=== PATIENT | female | born 1965 | race Caucasian/White ===

== ENCOUNTER 2019-02-02 09:56 | Observation (INO) | payer SELFPAY ==
[2019-02-02] MEDS ORDERED: 0.9 % SODIUM CHLORIDE 1,000 ML BAG IV ONE ×2 (10:02→11:10)
[2019-02-02] MEDS ORDERED: DIPHENHYDRAMINE HCL 50 MG/ML VIAL IVP ONE (10:03)
[2019-02-02] MEDS ORDERED: PROMETHAZINE HCL 25 MG in 0.9 % SODIUM CHLORIDE 100ML 100 ML IVPB ONE (10:03)
--- NOTE | 2019-02-02 10:06 | Emergency Department Record ---
History of Present Illness - General Chief complaint: Nausea, Vomiting, Diarrhea Stated complaint: VOMITING/DIARRHEA Time Seen by Provider: 02/02/19 10:02 Source: Patient, Family Mode of Arrival: Ambulatory Limitations: No limitations - History of Present Illness Initial comments: 53 yo female presents with nausea, vomiting, and abdominal pain that started at 4:30am. She was asymptomatic yesterday. No blood in the vomit or diarrhea. No fevers. No recent antibiotics. [place] She denies any history of abdominal surgery. She is unaware of any exposures to others with similar illness. MD complaint: Abdominal pain, Diarrhea, Nausea, Vomiting -: Hour(s) (6) Description of Vomiting: Watery Description of Diarrhea: Water Location: Diffuse, Epigastric Radiation: Epigastric Severity: Severe Quality: Constant Improves with: None Worsens with: Vomiting, Other (Diarrhea) Associated Symptoms: Other (Abdominal pain) - Related Data Home Medications Medication Instructions Recorded Confirmed Last Taken No Home Med [NO HOME MEDS] 02/02/19 02/02/19 Unknown Allergies Allergy/AdvReac Type Severity Reaction Status Date / Time iodine Allergy Severe VOMITING Verified 02/02/19 09:59 morphine Allergy Severe VOMITING Verified 02/02/19 09:59 venlafaxine HCl Allergy Severe BEHAVIORAL Verified 02/02/19 09:59 [From Effexor] CHANGES methotrexate AdvReac Mild VOMITING Verified 02/02/19 09:59 pregabalin [From Lyrica] AdvReac Mild VOMITING Verified 02/02/19 09:59 Review of Systems Constitutional: Denies: Chills, Fever, Malaise, Night sweats, Weakness Eyes: Denies: Eye discharge ENT: Denies: Congestion, Throat pain Respiratory: Denies: Cough, Dyspnea, Hemoptysis, Stridor, Wheezes Cardiovascular: Denies: Chest pain, Palpitations, Syncope Endocrine: Denies: Fatigue, Polydipsia, Polyuria Gastrointestinal: Reports: Abdominal pain, Diarrhea, Nausea, Vomiting Genitourinary: Denies: Dysuria, Urgency Musculoskeletal: Denies: Arthralgia, Back pain, Neck pain Skin: Denies: Bruising, Change in color, Rash Neurological: Denies: Headache Psychiatric: Denies: Anxiety Hematological/Lymphatic: Denies: Easy bleeding, Easy bruising Physical Exam - General General Appearance: Alert, Oriented x3, Cooperative, No acute distress Limitations: No limitations - Head Head exam: Atraumatic, Normal inspection - Eye Eye exam: Normal appearance, PERRL. negative: Conjunctival injection, Scleral icterus - ENT ENT exam: Normal exam, Mucous membranes moist, Normal orophraynx Ear exam: Normal external inspection Nasal Exam: Normal inspection Mouth exam: Normal external inspection Teeth exam: Normal inspection Throat exam: Normal inspection - Neck Neck exam: Normal inspection - Respiratory Respiratory exam: Normal lung sounds bilaterally. negative: Respiratory distress - Cardiovascular Cardiovascular Exam: Regular rate, Normal rhythm, Normal heart sounds - GI/Abdominal GI/Abdominal exam: Soft, Tenderness (tender in the periumbilical area but very soft, not distended). negative: Distended, Guarding, Rebound, Rigid - Rectal Rectal exam: Deferred - exam: Deferred - Extremities Extremities exam: Normal inspection. negative: Tenderness - Back Back exam: Denies: CVA tenderness (R), CVA tenderness (L), Paraspinal tenderness , Rash noted, Tenderness - Neurological Neurological exam: Alert, Oriented X3 - Psychiatric Psychiatric exam: Anxious. negative: Agitated - Skin Skin exam: Dry, Intact, Normal color, Warm Course - Reevaluation(s) Reevaluation #1: Vitals reviewed. 02/02/19 10:17 02/02/19 11:11 The labs were reviewed The CBC demonstrated WBC of 18 The BMP and Lipase were normal She still has nausea and pain 02/02/19 11:24 No changes on the CMP 02/02/19 12:[address] scan result is pending 02/02/19 12:20 The results were reviewed with the patient and family. No acute CT scan findings. The diarrhea has stopped. The vomiting has continued. I recommend admission OBV for supportive care until improved. 02/02/19 12:24 The case was discussed with Magnolia Yanes NP of the admission service Medical Decision Making - Lab Data Result diagrams: 02/02/19 10:13 02/02/19 10:13 Disposition Disposition: Admit Clinical Impression: Vomiting and diarrhea Disposition: Still a Patient at [facility] Decision to Admit: Admit from ER Decision to Admit Date: 02/02/19 Decision to Admit Time: 12:22 Condition: (2) Stable Forms: Patient Portal Access Time of Disposition: 12:22 Quality - Quality Measures Quality Measures: N/A - Blood Pressure Screening Does Patient Have Any of the Following: No Blood Pressure Classification: Hypertensive Reading Systolic Measurement: 146 Diastolic Measurement: 78 Screening for High Blood Pressure: < Pre-Hypertensive BP, F/U Documented > [ G8950] Pre-Hypertensive Follow-up Interventions: Referral to alternative/primary care provider.
[2019-02-02] MEDS ORDERED: ACETAMINOPHEN 1,000 MG/100 ML BTL IVPB ONE (10:10)
[2019-02-02 10:49] LABS: HEMOGLOBIN 15.8 gm/dl (11.6-16.0); MEAN CORPUSCULAR HEMOGLOBIN 31.6 pg (27-33); MEAN CORPUSCULAR HGB CONC 35.1 g/dl (32-36); MEAN PLATELET VOLUME 10.9 fl (7.4-10.4); PLATELET COUNT 349 K/uL (130-400); RED CELL DISTRIBUTION WIDTH 12.8 % (11.5-14.5); WHITE BLOOD COUNT W/O DIFF 18.9 K/uL (4.2-12.2)
[2019-02-02 11:02] LABS: BLOOD UREA NITROGEN 10 mg/dL (6-20); CREATININE 0.7 mg/dL (0.5-0.9); EST GLOMERULAR FILTRATION RATE > 60 mL/min
[2019-02-02 11:03] LABS: LIPASE 18 U/L (13-60); TOTAL PROTEIN 7.7 g/dL (6.6-8.7)
[2019-02-02 11:05] LABS: GLUCOSE,RANDOM 165 mg/dL (74-109)
[2019-02-02 11:07] LABS: ALT/SGPT 17 U/L (<33); AST/SGOT 21 U/L (10.0-35.0)
[2019-02-02 11:08] LABS: ALKALINE PHOSPHATASE 101 U/L (35-104)
[2019-02-02] MEDS ORDERED: ONDANSETRON HCL IV 4 MG/2 ML VIAL IVP ONE (11:10)
[2019-02-02] MEDS ORDERED: KETOROLAC 30 MG/ML VIAL IVP ONE (11:10)
[2019-02-02] MEDS ORDERED: PROMETHAZINE HCL 12.5 MG in 0.9 % SODIUM CHLORIDE 100ML 100 ML IVPB ONE (12:03)
[2019-02-02 12:47] LABS: ALB/GLOB RATIO 1.5 (1.1-1.8); ALBUMIN 4.6 g/dL (4.0-5.0)
[2019-02-02 12:53] LABS: URINE APPEARANCE CLEAR; URINE BILIRUBIN NEGATIVE (NEGATIVE); URINE BLOOD NEGATIVE (NEGATIVE); URINE COLOR YELLOW; URINE GLUCOSE (UA) NEGATIVE (NEGATIVE); URINE KETONE TRACE (NEGATIVE); URINE LEUKOCYTE ESTERASE NEGATIVE (NEGATIVE); URINE NITRITE NEGATIVE (NEGATIVE); URINE PROTEIN NEGATIVE (NEGATIVE); URINE UROBILINOGEN 0.2 E.U./dL (0.20 - 1.00)
[2019-02-02] MEDS ORDERED: ONDANSETRON HCL IV 4 MG/2 ML VIAL IVP PRN (14:34)
[2019-02-02] MEDS ORDERED: KETOROLAC 30 MG/ML VIAL IVP PRN (14:34)
--- NOTE | 2019-02-02 15:56 | History & Physical ---
History of Present Illness - Date of Service Date of Service for History & Physical: 02/02/19 - History of Present Illness Admitting Diagnosis: Intractable Nausea and vomiting History of Present Illness: Zeina Morley is a 53 y/o female presenting to ED for 6 hour history of nausea, vomiting, diarrhea, abdominal pain. Denies any blood in stool or emesis. No hx of abdominal surgeries. Does not she lives on a farm but denies any diarrhea diseases in the animals. No known sick contacts. reports she has medical hx of chronic bronchitis "lung problems", low back pain, bulging discs, depression, current every day smoker. Patient is unable to give a good history due to fatigue and distress. While in ED WBC 18.9, neutrophils 90. CMP unremarkable. Lipase 18. U/A + ketones. CT abdomen/pelvis negative for acute process. She was given Ofirmiv, Benadryl, Toradol, Zofran in ED for generalized abdominal pain, persistent nausea and vomiting. Diarrhea has since improved, continued with nausea, vomiting and dry heaving. Admitted to floor for supportive treatment and IVF. 02/02/19- Resting in bed, visible distress complaining of abdominal pain. Patient and were reassured her CT abdomen/pelvis was normal. No vomiting or dry heaving noted at this time. Abdomen soft, tender to upper quadrants bilat. Afebrile. Plan for supportive treatment. PCP: none Travel Screening - Travel/Exposure Within Last 30 Days Have you traveled within the last 30 days?: No - Travel/Exposure Within Last Year Have you traveled outside the [place] in the last year?: No - Additonal Travel Details Have you been exposed to anyone with a communicable illness?: No - Travel Symptoms Symptom Screening: None Review of Systems Constitutional: Denies: Chills, Fever, Malaise, Night sweats, Weakness Eyes: Denies: Eye discharge ENT: Denies: Congestion, Throat pain Respiratory: Denies: Cough, Dyspnea, Hemoptysis, Stridor, Wheezes Cardiovascular: Denies: Chest pain, Palpitations, Syncope Endocrine: Denies: Fatigue, Polydipsia, Polyuria Gastrointestinal: Reports: Abdominal pain, Diarrhea, Nausea, Vomiting Genitourinary: Denies: Dysuria, Urgency Musculoskeletal: Denies: Arthralgia, Back pain, Neck pain Skin: Denies: Bruising, Change in color, Rash Neurological: Denies: Headache Psychiatric: Denies: Anxiety Hematological/Lymphatic: Denies: Easy bleeding, Easy bruising Past Medical History - SOCIAL HISTORY Smoking Status: Current every day smoker Alcohol Use: Occasional Drug Use: None - RESPIRATORY Hx Respiratory Disorders: Yes Hx COPD: Yes - CARDIOVASCULAR Hx Cardio Disorders: No - NEURO Hx Neuro Disorders: Yes Hx Headaches: Yes - GI Hx GI Disorders: No - Hx Genitourinary Disorders: No - ENDOCRINE Hx Endocrine Disorders: No - MUSCULOSKELETAL Hx Musculoskeletal Disorders: Yes Hx Arthritis: Yes Hx Back Injury: Yes Hx Fibromyalgia: Yes - PSYCH Hx Psych Problems: Yes Hx Anxiety: Yes Hx Depression: Yes - HEMATOLOGY/ONCOLOGY Hx Hematology/Oncology Disorders: No Family Medical History Any Significant Family History?: Yes Hx Heart Disease: Mother Hx Stroke: Mother H&P Meds/Allergies - Allergies Allergies: Allergies Allergy/AdvReac Type Severity Reaction Status Date / Time iodine Allergy Severe VOMITING Verified 02/02/19 09:59 morphine Allergy Severe VOMITING Verified 02/02/19 09:59 venlafaxine HCl Allergy Severe BEHAVIORAL Verified 02/02/19 09:59 [From Effexor] CHANGES methotrexate AdvReac Mild VOMITING Verified 02/02/19 09:59 pregabalin [From Lyrica] AdvReac Mild VOMITING Verified 02/02/19 09:59 - Home Medications Home Medications Medication Instructions Recorded Confirmed Last Taken No Home Med [NO HOME MEDS] 02/02/19 02/02/19 Unknown - Active Medications Active Medications: Current Medications Sodium Chloride () 1,000 mls @ 125 mls/hr IV .Q8H PRN PRN Reason: LARGE VOLUME IV Acetaminophen (Ofirmev) 1,000 mg in 100 mls @ 400 mls/hr IVPB Q6H RODRICK Promethazine HCl 12.5 mg/ (Sodium Chloride) 100.5 mls @ 200 mls/hr IVPB Q6H PRN PRN Reason: NAUSEA Ketorolac Tromethamine (Toradol) 15 mg IVP Q8H PRN PRN Reason: PAIN - MILD (1-4) Ondansetron HCl (Zofran) 4 mg IVP Q4H PRN PRN Reason: NAUSEA Physical Exam - Vital Signs Vital Signs: Vital Signs - Last 24 Hrs Temp Pulse Pulse Resp BP BP Pulse Ox 02/02/19 14:34 97.6 F 58 L 16 176/78 100 02/02/19 14:33 54 L 20 136/71 99 02/02/19 10:01 98.2 F 48 L 20 146/78 99 - General General Appearance: Alert, Oriented x3, Cooperative Limitations: No limitations - Head Head exam: Atraumatic, Normal inspection - Eye Eye exam: Normal appearance, PERRL. negative: Conjunctival injection, Scleral icterus - ENT ENT exam: Normal exam, Mucous membranes moist, Normal orophraynx Ear exam: Normal external inspection Nasal Exam: Normal inspection Mouth exam: Normal external inspection Teeth exam: Normal inspection Throat exam: Normal inspection - Neck Neck exam: Normal inspection - Respiratory Respiratory exam: Normal lung sounds bilaterally. negative: Respiratory distress - Cardiovascular Cardiovascular Exam: Regular rate, Normal rhythm, Normal heart sounds Peripheral Pulses: 2+: Radial (R), Radial (L) - GI/Abdominal GI/Abdominal exam: Soft, Normal bowel sounds, Tenderness (tender in the periumbilical area but very soft, not distended). negative: Distended, Guarding , Rebound, Rigid - Rectal Rectal exam: Deferred - exam: Deferred - Extremities Extremities exam: Normal inspection. negative: Tenderness - Back Back exam: Denies: CVA tenderness (R), CVA tenderness (L), Paraspinal tenderness , Rash noted, Tenderness - Neurological Neurological exam: Alert, Oriented X3 - Psychiatric Psychiatric exam: Anxious. negative: Agitated - Skin Skin exam: Dry, Intact, Normal color, Warm Results - Labs Result Diagrams: 02/02/19 10:13 02/02/19 10:13 Labs Last 24 Hours: Laboratory Results - last 24 hr 02/02/19 02/02/19 02/02/19 10:13 10:13 12:53 WBC 18.9 H RBC 5.00 Hgb 15.8 Hct 45.0 MCV 90.0 MCH 31.6 MCHC 35.1 RDW 12.8 Plt Count 349 MPV 10.9 H Neutrophils % 90.0 H Eosinophils % Not Reportable Basophils % Not Reportable Lymphocytes 4.0 L Monocytes 6.0 Sodium 141 Potassium 4.2 Chloride 107 Carbon Dioxide 20.0 L Anion Gap 14.0 BUN 10 Creatinine 0.7 Estimated GFR > 60 Random Glucose 165 H Calcium 9.7 Total Bilirubin 0.50 AST 21 ALT 17 Alkaline Phosphatase 101 Total Protein 7.7 Albumin 4.6 Globulin 3.1 Albumin/Globulin Ratio 1.5 Lipase 18 Urine Color Yellow Urine Appearance Clear Urine pH 7.0 Ur Specific [place] 1.015 Urine Protein Negative Urine Glucose (UA) Negative Urine Ketones Trace H Urine Blood Negative Urine Nitrite Negative Urine Bilirubin Negative Urine Urobilinogen 0.2 Ur Leukocyte Esterase Negative - Imaging and Cardiology CT scan - abdomen Status: Report reviewed (negative for acute process) VTE H&P Assessment - Risk for VTE Risk for VTE: Yes Risk Level: Low Risk Assessment Date: 02/02/19 Risk Assessment Time: 16:18 VTE Orders Placed or Will Be Placed: Yes Plan - Detailed Diagnosis and Plan (1) Vomiting and diarrhea Current Visit: Yes Status: Acute Base Code: R11.10 - VOMITING, UNSPECIFIED; R19.7 - DIARRHEA, UNSPECIFIED Comment: 02/02/19 - Acute onset 6 hours prior to arrival - Symptoms unresolved after Benadryl, Phenergan, Toradol, Zofran, Ofirmiv in ED - CT abdomen/pelvis without acute process - Distress is out of proportation to CT and exam findings - NS @ 125ml/hr - Ofirmev 1,000mg Q6hr, Toradol 15mg IVP Q 8hr PRN, Zofran 4mg IVP Q4hr PRN - Clear liquids when symptoms improve (2) DVT prophylaxis Current Visit: Yes Status: Acute Base Code: [id number] - Comment: 02/02/19 - Nursing to encourage frequent ambulation (3) Full code status Current Visit: Yes Status: Acute Base Code: Z78.9 - OTHER SPECIFIED HEALTH STATUS Comment: 02/02/19
[2019-02-02] MEDS: PROMETHAZINE HCL 12.5 MG in 0.9 % SODIUM CHLORIDE 100ML 100 ML IVPB PRN ×2 (17:03→23:48)
[2019-02-02] MEDS: ACETAMINOPHEN 1,000 MG/100 ML BTL IVPB SCH (18:37)
[2019-02-02] MEDS: 0.9 % SODIUM CHLORIDE 1000ML 1,000 ML IV PRN (18:56)
[2019-02-02] MEDS: CALCIUM CARBONATE 500 MG TAB.CHEW PO SCH ×2 (19:19→23:52)
[2019-02-03] MEDS: ACETAMINOPHEN 1,000 MG/100 ML BTL IVPB SCH ×2 (00:19→06:14)
[2019-02-03] MEDS: 0.9 % SODIUM CHLORIDE 1000ML 1,000 ML IV PRN (00:49)
[2019-02-03 06:41] LABS: BASO % 0.1 % (0-6); GRAN % 78.4 % (47-80); HEMOGLOBIN 13.2 gm/dl (11.6-16.0); LYMPH % 14.2 % (16-45); MEAN CORPUSCULAR HEMOGLOBIN 31.1 pg (27-33); MEAN CORPUSCULAR HGB CONC 33.8 g/dl (32-36); MEAN PLATELET VOLUME 10.8 fl (7.4-10.4); MONO % 7.3 % (0-9); PLATELET COUNT 280 K/uL (130-400); RED BLOOD COUNT 4.24 M/uL (3.80-5.40); RED CELL DISTRIBUTION WIDTH 12.7 % (11.5-14.5); WHITE BLOOD COUNT W/O DIFF 14.2 K/uL (4.2-12.2)
[2019-02-03 06:53] LABS: BLOOD UREA NITROGEN 7 mg/dL (6-20); CREATININE 0.6 mg/dL (0.5-0.9); EST GLOMERULAR FILTRATION RATE > 60 mL/min; GLUCOSE,RANDOM 124 mg/dL (74-109)
--- NOTE | 2019-02-03 14:54 | Discharge Summary ---
Providers Discharge Summary Date: 02/03/19 Date of admission: 02/02/19 14:31 Expected Date of Discharge: 02/03/19 Attending physician: ORION BRANTLEY Physical Exam - Vital Signs Vital Signs: Vital Signs - Last 24 Hrs Temp Pulse Resp BP Pulse Ox 02/03/19 08:00 98.2 F 56 L 17 130/64 97 02/03/19 03:45 97.9 F 45 L 18 138/70 96 - General General Appearance: Alert, Oriented x3, Cooperative, No acute distress Limitations: No limitations - Head Head exam: Atraumatic, Normal inspection - Eye Eye exam: Normal appearance, PERRL. negative: Conjunctival injection, Scleral icterus - ENT ENT exam: Normal exam, Mucous membranes moist, Normal orophraynx Ear exam: Normal external inspection Nasal Exam: Normal inspection Mouth exam: Normal external inspection Teeth exam: Normal inspection Throat exam: Normal inspection - Neck Neck exam: Normal inspection - Respiratory Respiratory exam: Normal lung sounds bilaterally. negative: Respiratory distress - Cardiovascular Cardiovascular Exam: Regular rate, Normal rhythm, Normal heart sounds Peripheral Pulses: 2+: Radial (R), Radial (L) - GI/Abdominal GI/Abdominal exam: Soft, Normal bowel sounds, Mass. negative: Distended, Guarding, Rebound, Rigid, Tenderness - Rectal Rectal exam: Deferred - exam: Deferred - Extremities Extremities exam: Normal inspection. negative: Tenderness - Back Back exam: Denies: CVA tenderness (R), CVA tenderness (L), Paraspinal tenderness , Rash noted, Tenderness - Neurological Neurological exam: Alert, Oriented X3 - Psychiatric Psychiatric exam: Anxious. negative: Agitated - Skin Skin exam: Dry, Intact, Normal color, Warm Hospitalization - Hospitalization Admission Diagnosis: Intractable Nausea and vomiting - Problem List/Discharge Diagnosis (1) Vomiting and diarrhea Status: Acute Base Code: R11.10 - VOMITING, UNSPECIFIED; R19.7 - DIARRHEA, UNSPECIFIED Comment: 02/03/19 - Acute onset 6 hours prior to arrival - Symptoms unresolved after Benadryl, Phenergan, Toradol, Zofran, Ofirmiv in ED - CT abdomen/pelvis without acute process - Significant improvement over night. Tolerating ice chips and clear liquids - NS @ 125ml/hr - Ofirmev 1,000mg Q6hr, Toradol 15mg IVP Q 8hr PRN, Zofran 4mg IVP Q4hr PRN - Diet increased to bland and tolerated well without vomiting or abdominal pain. Nausea only slight. - DC home today - She does not have insurance. Encouraged her to establish with [facility] family practice. Gypsy Moody's information given to her to contact on Tuesday for financial assistance (2) DVT prophylaxis Status: Acute Base Code: [id number] - Comment: 02/03/19 - Nursing to encourage frequent ambulation (3) Full code status Status: Acute Base Code: Z78.9 - OTHER SPECIFIED HEALTH STATUS Comment: 02/03 - Hospitalization Course Disposition: Home, Self-Care Hospital Course: Zeina Morley is a 53 y/o female presenting to ED for 6 hour history of nausea, vomiting, diarrhea, abdominal pain. Denies any blood in stool or emesis. No hx of abdominal surgeries. Does not she lives [place] a farm but denies any diarrhea diseases in the animals. No known sick contacts. reports she has medical hx of chronic bronchitis "lung problems", low back pain, bulging discs, depression, current every day smoker. Patient is unable to give a good history due to fatigue and distress. While in ED WBC 18.9, neutrophils 90. CMP unremarkable. Lipase 18. U/A + ketones. CT abdomen/pelvis negative for acute process. She was given Ofirmiv, Benadryl, Toradol, Zofran in ED for generalized abdominal pain, persistent nausea and vomiting. Diarrhea has since improved, continued with nausea, vomiting and dry heaving. Admitted to floor for supportive treatment and IVF. 02/02/19- Resting in bed, visible distress complaining of abdominal pain. Patient and were reassured her CT abdomen/pelvis was normal. No vomiting or dry heaving noted at this time. Abdomen soft, tender to upper quadrants bilat. Afebrile. Plan for supportive treatment. 02/03/19- Significant improvement over night. Tolerating PO intake. NO further vomiting. Abdominal pain /10 down from 10 yesterday. In no visible distress. DC home today. Encouraged to contact finance on Tuesday for financial assistance and for assistance in establishing with [facility] for primary care. PCP: none Procedures: Imaging and X-Rays 02/02/19 11:10 ABDOMEN/PELVIS WO CONTRAST [CT] Stat Abnormal Labs: Abnormal Lab Results 02/02/19 02/02/19 02/02/19 Range/Units 10:13 10:13 12:53 WBC 18.9 H (4.2-12.2) K/uL MPV 10.9 H (7.4-10.4) fl Neutrophils % 90.0 H (47-80) % Lymphocytes % (16-45) % Lymphocytes 4.0 L (16-45) % Chloride (98-107) mmol/L Carbon Dioxide 20.0 L (22-29) mmol/L Random Glucose 165 H (74-109) mg/dL Urine Ketones Trace H (NEGATIVE) 02/03/19 02/03/19 Range/Units 06:15 06:15 WBC 14.2 H (4.2-12.2) K/uL MPV 10.8 H (7.4-10.4) fl Neutrophils % (47-80) % Lymphocytes % 14.2 L (16-45) % Lymphocytes (16-45) % Chloride 108 H (98-107) mmol/L Carbon Dioxide (22-29) mmol/L Random Glucose 124 H (74-109) mg/dL Urine Ketones (NEGATIVE) Condition at Discharge: (2) Stable Discharge Medications - Discharge Medications Home Medications: Ambulatory Orders No Home Med [NO HOME MEDS] 02/02/19 [Last Taken Unknown] Discharge Plan - Discharge Instructions Activity at Discharge: Increase Activity as Tolerated Diet at Discharge: Advance to Usual Diet Instructions: Acute Nausea and Vomiting (DC) Additional Instructions: 2 Activity: As tolerated 2 Diet: slowly increase diet as tolerated 2 Consults: none 2 Follow Up: Will need family doctor for follow up, Follow up with Jolie Yu ( card given) 2 Dressing/Wound Care: (Type) (Change) 2 Additional: Contact Financial counselor for concerns regarding fees for visit ( Shania Moody-card given) Quality Measures - Quality Measures Quality Measures: Documentation of Current Medications in Medical Record, Screening for High Blood Pressure and F/U Documented - Current Medications Quality Measure: Measure #130: Documentation of Current Medications Documentation of Current Medications: <Current Medications Documented/Reviewed> [G8427] - Blood Pressure Screening Quality Measure: Screening for High Blood Pressure and Follow-Up Documented Does Patient Have Any of the Following: No Blood Pressure Classification: Pre-Hypertensive BP Reading Systolic Measurement: 136 Diastolic Measurement: 71 Screening for High Blood Pressure: < Pre-Hypertensive BP, F/U Documented > [ G8950] Pre-Hypertensive Follow-up Interventions: Follow-up with rescreen every year. - Elder Abuse Suspicion Index EASI Reference Information: Marysol PEREZ, Candida Cintron, Arnoldo Montez, Lance Cortes.Development and validation of a tool to assist physicians identification of elder abuse: The Elder Abuse Suspicion Index (EASI ). Journal of Elder Abuse and Neglect, 2008; 20 (3): 276-300.
--- NOTE | 2019-02-05 09:05 | CT SCAN REPORT ---
EXAM: CT OF THE ABDOMEN AND PELVIS WITHOUT CONTRAST HISTORY: MID ABDOMINAL PAIN. TECHNIQUE: Sequential axial images were obtained from the diaphragms through the ischiorectal fossa without intravenous or oral contrast administration. Comparison: None. FINDINGS: The visualized lung bases are normal. The heart size is at the upper limits of normal. No gallstones or ductal dilatation. The liver appears grossly unremarkable. The pancreas and spleen appear normal. The adrenal glands and kidneys appear normal. No CT findings suggestive of obstructive uropathy. The small bowel appears normal. The appendix is visualized and appears normal. There is mild atherosclerotic change of the abdominal aorta. There are pars defects at L5. No spondylolisthesis. IMPRESSION: 1. NO CT FINDINGS SUGGESTIVE OF OBSTRUCTIVE UROPATHY. 2. THE APPENDIX IS VISUALIZED AND APPEARS NORMAL. JOB NUMBER: [id number] [facility]
== END 2019-02-03 13:18 | disposition home or self-care (01) ==
LOC: ER 09:56 → MEDSURG 14:31
PROVIDERS: ADMIT Internal Medicine; ATTEND Internal Medicine
DX: R11.2 Nausea with vomiting, unspecified (principal); R19.7 Diarrhea, unspecified; J44.9 Chronic obstructive pulmonary disease, unspecified; M19.90 Unspecified osteoarthritis, unspecified site; M79.7 Fibromyalgia; F17.210 Nicotine dependence, cigarettes, uncomplicated
CPT/HCPCS: 74176; 80048; 80053; 81003; 83690; 85025; 85027; 96361; 96365; 96366; 96368; 96375; 99217; 99220; 99285; J1200; J1885; J2405; J2550; J7030